=== PATIENT | male | born 1975 | race Caucasian/White ===

== ENCOUNTER 2021-06-03 07:59 | Emergency (ER) | payer OTHER ==
[~2021-06-03] VITALS: Ht 188 cm; Wt 154.0 kg
[2021-06-03] MEDS ORDERED: PREDNISONE20 MG PO (09:37)
[2021-06-03] MEDS ORDERED: HYDROCO/APAP1 TA9 PO (09:37)
[2021-06-03] MEDS ORDERED: MELOXICAM15 MG PO (09:37)
[2021-06-03 09:50] VITALS: BP 124/87
== END 2021-06-03 10:10 | disposition home or self-care (01) | DRG 554 ==
LOC: ED 07:59
DX: M17.12 Unilateral primary osteoarthritis, left knee (principal); E66.9 Obesity, unspecified
CPT/HCPCS: L1830

== ENCOUNTER 2021-07-12 08:24 | Emergency (ER) | payer OTHER ==
[~2021-07-12] VITALS: Ht 188 cm; Wt 168.2 kg
[2021-07-12] VITALS (7 sets, daily range): BP systolic 119–142; BP diastolic 78–86
[~2021-07-12 08:24] MED LIST: HYDROCO/APAP1 TA9 PO; MELOXICAM15 MG PO; PREDNISONE20 MG PO
[2021-07-12] MEDS ORDERED: ULTRAM50 MG PO (10:09)
[2021-07-12] MEDS ORDERED: MEDDOSEPAK PO (10:09)
== END 2021-07-12 10:28 | disposition home or self-care (01) | DRG 554 ==
LOC: ED 08:24
DX: M17.0 Bilateral primary osteoarthritis of knee (principal); E66.9 Obesity, unspecified; F17.290 Nicotine dependence, other tobacco product, uncomplicated

== ENCOUNTER 2021-08-11 05:18 | Inpatient (IN) | payer OTHER ==
[2021-08-11] VITALS (67 sets, daily range): BP systolic 93–150; BP diastolic 25–82
[~2021-08-11] VITALS: Ht 188 cm; Wt 162.3 kg
[~2021-08-11 05:18] MED LIST changes: +MEDDOSEPAK PO; +ULTRAM50 MG PO
[2021-08-11 06:05] LABS: IMMATURE GRANULOCYTES 0.5 % (0.0-5.0); MEAN CORPUSCULAR HGB 25.8 pG CALC (26.0-32.0); NEUT# 4.55 thou/uL (1.82-7.42); RED BLOOD COUNT 4.65 mill/uL (4.70-6.10); RED CELL DISTRI WIDTH 14.1 % (11.5-15.5)
[2021-08-11 06:10] LABS: ALKALINE PHOSPHATASE 46 u/l (38-126); BILIRUBIN, TOTAL 0.4 mg/dL (0.0-1.4); C-REACTIVE PROTEIN 6.7 mg/dL (0-0.9); CHLORIDE 102 mmol/l (95-108); CPK 38 u/l (52-200); POTASSIUM 4.9 mmol/l (3.5-5.1); SGOT/AST 14 u/l (17-59); SODIUM 134 mmol/l (137-146)
[2021-08-11] MEDS ORDERED: FUROSEMIDE20 MG PO (06:11)
[2021-08-11 06:13] LABS: ACT PARTIAL THROMBO TIME 23.2 SECONDS (20.0-32.5); PROTHROMBIN TIME 10.4 SECONDS (9.0-12.5)
[2021-08-11 06:22] LABS: ALBUMIN 2.8 g/dL (3.2-5.0); ANION GAP 16 (6-22 (CALC)); BUN/CREATININE RATIO 16 (12-20 (CALC)); CARBON DIOXIDE 21 mmol/l (22-30); GFR FOR AFR.AMER. 12 ML/MIN (>=60 (CALC)); GFR OTHER RACES 10 ML/MIN (>=60 (CALC)); TOTAL PROTEIN 5.9 g/dL (6.3-8.2)
[2021-08-11 06:23] LABS: BUN 97 mg/dL (9-20)
[2021-08-11 06:29] LABS: D-DIMER 13.39 mg/L (0.19-0.60)
[2021-08-11 06:31] LABS: MYOGLOBIN 105 ng/mL (0 - 121)
[2021-08-11 07:03] LABS: URINE BILIRUBIN - DIPSTICK NEGATIVE (NEGATIVE); URINE BLOOD DIPSTICK LARGE (NEGATIVE); URINE COLOR YELLOW; URINE GLUCOSE - DIPSTICK NEGATIVE (NEGATIVE); URINE KETONE NEGATIVE (NEGATIVE); URINE LEUK ESTERASE NEGATIVE (NEGATIVE); URINE PROTEIN - DIPSTICK 100 mg/dL (NEG-TRACE); URINE SPECIFIC GRAVITY 1.025; URINE UROBILINOGEN - DIPSTICK 0.2 E.U./dL (0.2)
[2021-08-11 07:04] LABS: URINE NITRITE - DIPSTICK NEGATIVE (Negative); URINE RBC 25-50 RBC/hpf (0-5); URINE WBC 0-2 WBC/hpf (0-5)
[2021-08-11 07:05] LABS: URINE BACTERIA FEW hpf; URINE SQUAMOUS EPITHELIAL CELL FEW EPI/hpf (0-FEW)
[2021-08-11 08:03] LABS: C-REACTIVE PROTEIN 6.7 mg/dL (0-0.9)
[2021-08-11 18:56] LABS: CREATININE 5.8 mg/dL (0.7-1.3)
[2021-08-11 18:57] LABS: POTASSIUM 6.2 mmol/l (3.5-5.1)
[2021-08-11 23:45] LABS: ALBUMIN 2.2 g/dL (3.2-5.0); CREATININE 5.7 mg/dL (0.7-1.3); POTASSIUM 5.8 mmol/l (3.5-5.1)
[2021-08-12] VITALS (28 sets, daily range): BP systolic 98–154; BP diastolic 42–81
[2021-08-12 05:27] LABS: IMMATURE GRANULOCYTES 0.5 % (0.0-5.0); MEAN CELL VOLUME 84.8 fL CALC (80.0-100.0); MEAN CORPUSCULAR HGB 26.1 pG CALC (26.0-32.0); MEAN CORPUSCULAR HGB CONC 30.8 g/dL CAL (32.0-36.0); NEUT# 10.44 thou/uL (1.82-7.42); RED BLOOD COUNT 2.83 mill/uL (4.70-6.10); RED CELL DISTRI WIDTH 14.3 % (11.5-15.5)
[2021-08-12 05:34] LABS: ALBUMIN 2.4 g/dL (3.2-5.0)
[2021-08-12 05:39] LABS: CREATININE 5.6 mg/dL (0.7-1.3); POTASSIUM 6.2 mmol/l (3.5-5.1)
[2021-08-12 06:30] LABS: HEMOGLOBIN 7.4 g/dl (14.0-18.0)
[2021-08-12 07:47] LABS: HEMATOCRIT 22.9 % (39.0-50.0); IMMATURE GRANULOCYTES 0.5 % (0.0-5.0); MEAN CELL VOLUME 85.1 fL CALC (80.0-100.0); MEAN CORPUSCULAR HGB CONC 30.6 g/dL CAL (32.0-36.0); NEUT# 9.44 thou/uL (1.82-7.42); RED BLOOD COUNT 2.69 mill/uL (4.70-6.10); RED CELL DISTRI WIDTH 14.2 % (11.5-15.5)
== END 2021-08-12 13:30 | disposition short-term general hospital (02) | DRG 177 ==
LOC: ED 05:18 → ED-I 07:14 → ED 07:37 → ICU 07:38
PROVIDERS: Family Medicine; Internal Medicine Nephrology; ADMIT Internal Medicine; ATTEND Internal Medicine
PROC: 0T9B70Z Drainage of Bladder with Drainage Device, Via Natural or Artificial Opening (ICD-10-PCS; 2021-08-11)
PROC: 5A09357 Assistance with Respiratory Ventilation, Less than 24 Consecutive Hours, Continuous Positive Airway Pressure (ICD-10-PCS; principal; 2021-08-12)
DX: U07.1 COVID-19 (principal); J12.82 Pneumonia due to coronavirus disease 2019; N17.0 Acute kidney failure with tubular necrosis; J96.01 Acute respiratory failure with hypoxia; E87.2 Acidosis; I95.9 Hypotension, unspecified; E86.9 Volume depletion, unspecified; E87.5 Hyperkalemia; D64.9 Anemia, unspecified; E66.01 Morbid (severe) obesity due to excess calories
CPT/HCPCS: S0164